=== PATIENT | female | born 1980 | race Caucasian/White ===

== ENCOUNTER 2017-10-25 18:38 | Emergency (ER) | payer OTHER ==
[~2017-10-25] VITALS: Ht 152.4 cm; Wt 83.0 kg
[2017-10-25 18:46] VITALS: Ht 152.4 cm; Wt 83.0 kg
[2017-10-25 19:46] LABS: BASOPHIL % 0.3 % (0-2); PLATELET COUNT 352 x10^3mcL (130-400)
[2017-10-25 19:48] LABS: RED CELL DISTRIBUTION WIDTH 16.3 % (11.5-14.5)
[2017-10-25 19:53] LABS: microscopic required? NO
[2017-10-25 19:57] LABS: CALCIUM 8.7 mg/dL (8.5-10.1); CARBON DIOXIDE 24.7 mmol/L (21-32); CHLORIDE SERUM 106 mmol/L (98-107); CREATININE SERUM 0.9 mg/dL (0.6-1.0); GFR1 > 60 mL/min; GLUCOSE SERUM 172 mg/dL (74-106); POTASSIUM SERUM 3.7 mmol/L (3.5-5.1); SODIUM SERUM 142 mmol/L (136-145)
[2017-10-25 20:01] LABS: ALBUMIN 3.6 g/dL (3.4-5.0); ALKALINE PHOSPHATASE 125 U/L (46-116); ALT/SGPT 17 U/L (14-59); AST/SGOT 13 U/L (15-37); TOTAL PROTEIN, SERUM 7.4 g/dL (6.4-8.2)
[2017-10-25 20:33] LABS: urine erythrocyte NEGATIVE (NEGATIVE)
[2017-10-25 20:58] LABS: AMPHETAMINE QUAL UR NONE DETECTED (See below)
[2017-10-25 22:13] VITALS: BP 122/76
== END 2017-10-25 22:13 | disposition home or self-care (01) ==
LOC: ED 18:38
PROVIDERS: Emergency Medicine
DX: F30.8 Other manic episodes (principal); E66.9 Obesity, unspecified
CPT/HCPCS: 36415; G0480